=== PATIENT | male | born 1955 | race Caucasian/White ===

== ENCOUNTER → 2018-06-26 13:40 | Outpatient (BNVA) | payer MEDICARE, SELFPAY | PROVIDERS: Visit Provider Student in an Organized Health Care Education/Training Program | DX: I25.10 Atherosclerotic heart disease of native coronary artery without angina pectoris (principal); I12.9 Hypertensive chronic kidney disease with stage 1 through stage 4 chronic kidney disease, or unspecified chronic kidney disease; N18.3 Chronic kidney disease, stage 3 (moderate) | CPT/HCPCS: 99204; 99215 ==

== ENCOUNTER 2018-09-02 21:55 | Outpatient (REF) | payer MEDICARE, SELFPAY ==
[2018-09-02 22:29] LABS: ALT 32 U/L (12-78); AST 21 U/L (15-37); Albumin 3.6 g/dL (3.4-5.0); Alkaline Phosphatase 60 U/L (46-116); Anion Gap 6.4 mmol/L (3-11); BUN 25 mg/dL (7-18); Bilirubin, Total 0.3 mg/dL (0.2-1.0); CO2 27.6 mmol/L (21.0-32.0); CREATININE 1.55 mg/dL (0.70-1.30); Calcium 8.7 mg/dL (8.5-10.1); Chloride 103 mmol/L (98-107); Cholesterol 166 mg/dL (50-200); Estimated GFR 45.51 (mL/min/1.73m2); Glucose 75 mg/dL (70-100); HDL Cholesterol 45 mg/dL (40-60); LDL CHOLESTEROL 96 mg/dL (<100); Potassium 4.2 mmol/L (3.5-5.1); Sodium 137 mmol/L (136-145); Total Protein 9.5 g/dL (6.4-8.2); Triglyceride 134 mg/dL (30-150)
== END 2018-09-02 22:15 ==
LOC: NCHCN 21:55
PROVIDERS: PCP Family Medicine; Visit Provider Family Medicine
DX: E78.5 Hyperlipidemia, unspecified (principal)
CPT/HCPCS: 80053; 80061; 83721

== ENCOUNTER 2019-12-15 18:15 | Outpatient (REF) | payer MEDICARE, SELFPAY ==
[2019-12-15 21:48] LABS: ALT 30 U/L (16-63); AST 15 U/L (15-37); Albumin 3.5 g/dL (3.4-5.0); Alkaline Phosphatase 63 U/L (46-116); Anion Gap 8.6 mmol/L (3-11); BUN 21 mg/dL (7-18); Bilirubin, Total 0.4 mg/dL (0.2-1.0); CO2 24.4 mmol/L (21.0-32.0); CREATININE 1.56 mg/dL (0.70-1.30); Calcium 8.7 mg/dL (8.5-10.1); Chloride 105 mmol/L (98-107); Estimated GFR 45.03 (mL/min/1.73m2); Glucose 85 mg/dL (74-106); Potassium 4.5 mmol/L (3.5-5.1); Sodium 138 mmol/L (136-145); Total Protein 9.2 g/dL (6.4-8.2); Vitamin B12 359 pg/mL (193-986)
[2019-12-17 10:14] LABS: HIV-1/2 Ag & Ab Screen Negative (Negative)
[2019-12-17 11:03] LABS: Hepatitis C Ab w Rflx HCV PCR Negative (Negative)
== END 2019-12-15 18:35 ==
LOC: NCHCN 18:15
PROVIDERS: PCP Family Medicine; Visit Provider Nurse Practitioner Family
DX: I10 Essential (primary) hypertension (principal); N18.9 Chronic kidney disease, unspecified; D22.9 Melanocytic nevi, unspecified; R06.00 Dyspnea, unspecified; F17.210 Nicotine dependence, cigarettes, uncomplicated; I25.10 Atherosclerotic heart disease of native coronary artery without angina pectoris; K21.9 Gastro-esophageal reflux disease without esophagitis; Z11.4 Encounter for screening for human immunodeficiency virus [HIV]; Z11.59 Encounter for screening for other viral diseases
CPT/HCPCS: 80053; 86803; 87389; 82607; 83735

== ENCOUNTER 2020-06-14 19:30 | Outpatient (REF) | payer MEDICARE, SELFPAY ==
[2020-06-14 21:09] LABS: Anion Gap 3.7 mmol/L (3-11); BUN 16 mg/dL (7-18); CO2 27.3 mmol/L (21.0-32.0); CREATININE 1.42 mg/dL (0.70-1.30); Calcium 8.6 mg/dL (8.5-10.1); Chloride 105 mmol/L (98-107); Estimated GFR 50.04 (mL/min/1.73m2); Glucose 90 mg/dL (74-106); Potassium 4.5 mmol/L (3.5-5.1); Sodium 136 mmol/L (136-145)
== END 2020-06-14 19:50 ==
LOC: NCHCN 19:30
PROVIDERS: PCP Family Medicine; Visit Provider Nurse Practitioner Family
DX: R06.00 Dyspnea, unspecified (principal); I25.10 Atherosclerotic heart disease of native coronary artery without angina pectoris; F17.210 Nicotine dependence, cigarettes, uncomplicated; F32.9 Major depressive disorder, single episode, unspecified; K21.9 Gastro-esophageal reflux disease without esophagitis; N18.9 Chronic kidney disease, unspecified
CPT/HCPCS: 80048

== ENCOUNTER 2020-12-09 08:36 | Outpatient (REF) | payer MEDICARE, SELFPAY ==
[2020-12-09 14:33] LABS: ALT 29 U/L (16-63); AST 17 U/L (15-37); Albumin 3.2 g/dL (3.4-5.0); Alkaline Phosphatase 65 U/L (46-116); Anion Gap 8.5 mmol/L (3-11); BUN 16 mg/dL (7-18); Bilirubin, Total 0.4 mg/dL (0.2-1.0); CO2 25.5 mmol/L (21.0-32.0); CREATININE 1.6 mg/dL (0.70-1.30); Calcium 8.5 mg/dL (8.5-10.1); Chloride 106 mmol/L (98-107); Glucose 111 mg/dL (74-106); Magnesium 1.9 mg/dL (1.8-2.4); Potassium 4.3 mmol/L (3.5-5.1); Sodium 140 mmol/L (136-145); Total Protein 8.6 g/dL (6.4-8.2); Vitamin B12 336 pg/mL (193-986)
== END 2020-12-09 08:37 | disposition home or self-care (01) ==
LOC: NCHCN 08:36
PROVIDERS: PCP Family Medicine; Visit Provider Nurse Practitioner Family
DX: E78.5 Hyperlipidemia, unspecified (principal); I10 Essential (primary) hypertension; F17.210 Nicotine dependence, cigarettes, uncomplicated; R06.00 Dyspnea, unspecified; K21.9 Gastro-esophageal reflux disease without esophagitis; Z86.010 Personal history of colon polyps; F43.10 Post-traumatic stress disorder, unspecified; I25.10 Atherosclerotic heart disease of native coronary artery without angina pectoris
CPT/HCPCS: 80053; 82607; 83735

== ENCOUNTER 2021-02-08 02:27 | Outpatient (CLI) | payer MEDICARE, SELFPAY ==
--- NOTE | 2021-02-08 | DI.US_ITS ---
Exam(s) US AAA SCREENING EXAM: US AAA SCREENING CLINICAL HISTORY: SCREENING FOR AAA,Z13.6,CARDIOVASCULAR SCREENING TECHNIQUE: Ultrasound performed using standard protocol. COMPARISON: US ABDOMEN ULTRASOUND (P) from 07/27/2011 FINDINGS: Limited ultrasound was performed to evaluate for abdominal aortic aneurysm. The abdominal aorta is a t the upper limits of normal in diameter, at about 28 millimeters in the upper abdominal region, 26 m illimeters in the mid abdominal region, and 23 millimeters distally. Right and left common iliac artery show maximal diameter 15 millimeter and 16 millimeters respectivel y. IMPRESSION: No evidence of abdominal aortic aneurysm. No retroperitoneal fluid collection seen. DATA REPOSITORY:
== END 2021-02-08 02:47 ==
PROVIDERS: PCP Family Medicine; Visit Provider Nurse Practitioner Family
DX: Z13.6 Encounter for screening for cardiovascular disorders (principal)
CPT/HCPCS: 76706

== ENCOUNTER → 2021-04-04 00:42 | Outpatient (CLI) | payer MEDICARE, SELFPAY ==
--- NOTE | 2021-04-04 | DI.CTLCSR_ITS ---
Exam(s) CT CHEST LUNG CANCER SCREEN EXAM: CT CHEST LUNG CANCER SCREEN CLINICAL HISTORY: SCREENING FOR LUNG CA, CURRENT SMOKER, F17.210 TECHNIQUE: CT examination of the chest was performed utilizing low-dose lung cancer screening protoc ol. COMPARISON: No exams were available for comparison FINDINGS: Images obtained through the upper abdomen show unremarkable appearance of visualized portions of the liver and spleen. There is no mediastinal or hilar adenopathy. Mediastinal vascular structures appear intact by noncon trast criteria. Tracheobronchial tree appears intact. No pleural effusion or pleural-based mass. There are moderate central lobular and subpleural pulmonary emphysematous changes The lungs are clear with no significant intrapulmonary nodule identified. A 3 millimeter fissural no dule is noted on the right.. IMPRESSION: Lung RADS Cat 2 - Benign Appearance / Behavior: Nodules with a very low likelihood of becoming a clin ically active cancer due to size or lack of growth Continue annual screening with LDCT in 12 months. RADIATION DOSE DELIVERED: 84.81mGy.cm Total DLP 1.84mGy CTDIvol 84.81mGy.cm Total DLP 1.84mGy CTDIvol RADIATION OPTIMIZATION: All CT scans at this facility use at least one of these dose optimization te chniques: automated exposure control; mA and/or kV adjustment per patient size (includes targeted exa ms where dose is matched to clinical indication); or iterative reconstruction.
== END ==
PROVIDERS: PCP Family Medicine; Visit Provider Nurse Practitioner Family
DX: F17.210 Nicotine dependence, cigarettes, uncomplicated (principal); Z12.2 Encounter for screening for malignant neoplasm of respiratory organs; R91.1 Solitary pulmonary nodule
CPT/HCPCS: 71271

== ENCOUNTER 2021-06-15 14:08 | Outpatient (REF) | payer MEDICARE, SELFPAY ==
[2021-06-15 20:20] LABS: Anion Gap 4.9 mmol/L (3-11); BUN 21 mg/dL (7-18); CO2 28.1 mmol/L (21.0-32.0); CREATININE 1.5 mg/dL (0.70-1.30); Calcium 8.7 mg/dL (8.5-10.1); Chloride 106 mmol/L (98-107); Estimated GFR 46.82 (mL/min/1.73m2); Glucose 111 mg/dL (74-106); Potassium 4.8 mmol/L (3.5-5.1); Sodium 139 mmol/L (136-145)
== END 2021-06-15 14:09 | disposition home or self-care (01) ==
LOC: NCHCN 14:08
PROVIDERS: PCP Family Medicine; Visit Provider Nurse Practitioner Family
DX: I10 Essential (primary) hypertension (principal)
CPT/HCPCS: 80048

== ENCOUNTER 2021-12-15 16:10 | Outpatient (REF) | payer MEDICARE, SELFPAY ==
[2021-12-15 16:39] LABS: ALT 26 U/L (16-63); AST 17 U/L (15-37); Albumin 3.2 g/dL (3.4-5.0); Alkaline Phosphatase 67 U/L (46-116); Anion Gap 7.7 mmol/L (3-11); BUN 16 mg/dL (7-18); Bilirubin, Total 0.3 mg/dL (0.2-1.0); CO2 25.3 mmol/L (21.0-32.0); CREATININE 1.4 mg/dL (0.70-1.30); Calcium 8.4 mg/dL (8.5-10.1); Chloride 104 mmol/L (98-107); Glucose 90 mg/dL (74-106); Magnesium 1.8 mg/dL (1.8-2.4); Potassium 4.5 mmol/L (3.5-5.1); Sodium 137 mmol/L (136-145); Total Protein 8.9 g/dL (6.4-8.2); Vitamin B12 301 pg/mL (193-986)
[2021-12-15 19:03] LABS: NT-proBNP 128 pg/mL (<300)
== END 2021-12-15 16:11 | disposition home or self-care (01) ==
LOC: NCHCN 16:10
PROVIDERS: PCP Family Medicine; Visit Provider Nurse Practitioner Family
DX: I10 Essential (primary) hypertension (principal); R06.09 Other forms of dyspnea; R60.0 Localized edema; J43.8 Other emphysema; F32.9 Major depressive disorder, single episode, unspecified; K21.9 Gastro-esophageal reflux disease without esophagitis; I25.10 Atherosclerotic heart disease of native coronary artery without angina pectoris; Z79.899 Other long term (current) drug therapy
CPT/HCPCS: 80053; 82607; 83735; 83880

== ENCOUNTER → 2022-01-11 00:43 | Outpatient (CLI) | payer MEDICARE, SELFPAY ==
--- NOTE | 2022-01-11 | DI.US_ITS ---
Exam(s) US AAA SCREENING EXAM: US AAA SCREENING CLINICAL HISTORY: SCREENING FOR ABDOMINAL AORTIC ANEURYSM, I74.4 COMPARISON: CT CT CHEST LUNG CANCER SCREEN from 04/04/2021 FINDINGS: Abdominal Aorta: Proximal: 2.9 cm Mid: 2.5 cm Distal: 2.2 cm Iliacs: Right: 1.3 cm Left: 1.2 cm IMPRESSION: No evidence of abdominal aortic aneurysm. DATA REPOSITORY:
== END ==
PROVIDERS: PCP Family Medicine; Visit Provider Nurse Practitioner Family
DX: Z13.6 Encounter for screening for cardiovascular disorders (principal); I74.4 Embolism and thrombosis of arteries of extremities, unspecified
CPT/HCPCS: 76706

== ENCOUNTER 2022-07-31 12:16 | Outpatient (REF) | payer MEDICARE, SELFPAY ==
[2022-07-31 15:08] LABS: Abs Immature Grans 0.01 10^3/uL (0.0-0.06); Absolute Basophil Count 0.07 10^3/uL (0.0-0.2); Absolute Eosinophil Count 0.31 10^3/uL (0.0-0.7); Absolute Lymphocyte Count 2.94 10^3/uL (1.2-3.4); Absolute Neutrophil Count 3.36 10^3/uL (1.2-6.7); Eosinophils % 4.3; HCT 44.3 % (40.0-50.0); HGB 14.9 g/dL (13.5-17.5); Immature Grans % 0.1; Lymphocytes % 40.3; MCH 32.5 pg (27.0-33.0); MCHC 33.6 % (32.0-36.0); MCV 97 fL (80-95); MPV 10.6 fL (8.0-11.0); Monocytes % 8.2; Neutrophils % 46.1; Platelet Count 318 10^3/uL (130-400); RBC 4.58 10^6/uL (4.36-5.78); RDW-SD 46.4 fL; Reticulocyte 1.1 % (0.5-2.4); WBC 7.29 10^3/uL (4.4-10.8)
[2022-07-31 15:28] LABS: ALT 24 U/L (16-63); AST 15 U/L (15-37); Albumin 3.6 g/dL (3.4-5.0); Alkaline Phosphatase 62 U/L (46-116); Anion Gap 6.9 mmol/L (3-11); BUN 19 mg/dL (7-18); Bilirubin, Total 0.4 mg/dL (0.2-1.0); CO2 26.1 mmol/L (21.0-32.0); CREATININE 1.5 mg/dL (0.70-1.30); Calcium 8.9 mg/dL (8.5-10.1); Chloride 105 mmol/L (98-107); Estimated GFR 50.71 (mL/min/1.73m2); Folate 5.6 ng/mL (8.6-20.0); Glucose 102 mg/dL (74-106); Potassium 4.3 mmol/L (3.5-5.1); Sodium 138 mmol/L (136-145); Total Protein 9.2 g/dL (6.4-8.2)
[2022-08-01 09:54] LABS: Haptoglobin 173 mg/dL (32-197)
[2022-08-01 15:17] LABS: Albumin 45.2 % (55.8-66.1); Comment (See Note); Monoclonal Spike 29.7 % (None Seen); Monoclonal Spike g/dL 2.6 g/dL (None Seen); Total Protein 8.9 g/dL (6.3-8.2)
[2022-08-01 15:38] LABS: Immunotyping, Serum (See Note)
== END 2022-07-31 12:17 | disposition home or self-care (01) ==
LOC: NCHCN 12:16
PROVIDERS: PCP Family Medicine; Visit Provider Nurse Practitioner Family
DX: R77.0 Abnormality of albumin (principal); I25.10 Atherosclerotic heart disease of native coronary artery without angina pectoris; R60.0 Localized edema; I10 Essential (primary) hypertension; K21.00 Gastro-esophageal reflux disease with esophagitis, without bleeding; I71.40 Abdominal aortic aneurysm, without rupture, unspecified; J43.9 Emphysema, unspecified
CPT/HCPCS: 80053; 82746; 83010; 84165; 85025; 85045; 86320

== ENCOUNTER 2022-08-04 11:25 | Outpatient (REF) | payer MEDICARE, SELFPAY ==
[2022-08-07 15:52] LABS: Albumin, Urine % 20.6 %; Albumin, Urine mg/dL 4 mg/dL; Globulins, Urine % 79.4 %; Globulins, Urine mg/dL 14 mg/dL; Immunotyping, Urine (See Note); Total Protein Urine 18 mg/dL (See Note)
== END 2022-08-04 11:26 | disposition home or self-care (01) ==
LOC: NCHCN 11:25
PROVIDERS: PCP Family Medicine; Visit Provider Nurse Practitioner Family
DX: D47.2 Monoclonal gammopathy (principal)
CPT/HCPCS: 84156; 84166; 86335

== ENCOUNTER 2023-02-08 05:29 | Outpatient (CLI) | payer MEDICARE, SELFPAY ==
[2023-02-08 08:34] LABS: Abs Immature Grans 0.02 10^3/uL (0.0-0.06); Absolute Basophil Count 0.06 10^3/uL (0.0-0.2); Absolute Eosinophil Count 0.35 10^3/uL (0.0-0.7); Absolute Lymphocyte Count 3.01 10^3/uL (1.2-3.4); Absolute Monocyte Count 0.66 10^3/uL (0.1-0.8); Absolute Neutrophil Count 4.39 10^3/uL (1.2-6.7); Basophils % 0.7; Eosinophils % 4.1; HCT 41.1 % (40.0-50.0); HGB 13.7 g/dL (13.5-17.5); Immature Grans % 0.2; Lymphocytes % 35.5; MCH 32.3 pg (27.0-33.0); MCHC 33.3 % (32.0-36.0); MCV 97 fL (80-95); MPV 9.5 fL (8.0-11.0); Monocytes % 7.8; Neutrophils % 51.7; Platelet Count 276 10^3/uL (130-400); RBC 4.24 10^6/uL (4.36-5.78); RDW 13.3 % (11.8-14.1); RDW-SD 47.5 fL; WBC 8.49 10^3/uL (4.4-10.8)
[2023-02-08 09:02] LABS: ALT 24 U/L (16-63); AST 15 U/L (15-37); Albumin 3.1 g/dL (3.4-5.0); Alkaline Phosphatase 64 U/L (46-116); Anion Gap 7.6 mmol/L (3-11); BUN 20 mg/dL (7-18); Bilirubin, Total 0.4 mg/dL (0.2-1.0); CO2 26.4 mmol/L (21.0-32.0); CREATININE 1.6 mg/dL (0.70-1.30); Calcium 8.6 mg/dL (8.5-10.1); Chloride 105 mmol/L (98-107); Estimated GFR 46.64 (mL/min/1.73m2); Glucose 134 mg/dL (74-106); Potassium 4.2 mmol/L (3.5-5.1); Sodium 139 mmol/L (136-145); Total Protein 8.9 g/dL (6.4-8.2)
[2023-02-09 08:40] LABS: IgA 87 mg/dL (85-499); IgG 3331 mg/dL (610-1616); IgM 106 mg/dL (35-242); Kappa Free Light Chain 15.72 mg/dL (0.33-1.94)
[2023-02-09 12:17] LABS: Albumin 44.6 % (55.8-66.1); Albumin g/dL 3.7 g/dL (3.6-5.2); Comment (See Note); Monoclonal Spike 30.5 % (None Seen); Monoclonal Spike g/dL 2.5 g/dL (None Seen); Total Protein 8.3 g/dL (6.3-8.2)
== END 2023-02-08 05:30 | disposition home or self-care (01) ==
LOC: LBO 05:29
PROVIDERS: PCP Family Medicine; Visit Provider Internal Medicine Hematology & Oncology
DX: D47.2 Monoclonal gammopathy (principal)
CPT/HCPCS: 36415; 80053; 82784; 83883; 84165; 85025

== ENCOUNTER 2023-02-20 18:52 | Outpatient (REF) | payer MEDICARE, SELFPAY ==
[2023-02-20 16:19] LABS: Hemoglobin A1C 6.1 % (<5.7)
[2023-02-20 16:24] LABS: Magnesium 1.7 mg/dL (1.8-2.4); TSH (W/Ref FT4) 0.97 uIU/mL (0.36-3.74); Vitamin B12 821 pg/mL (193-986)
[2023-02-20 16:26] LABS: Folate > 20.0 ng/mL (8.6-20.0)
[2023-02-20 22:55] LABS: PSA, Screening 5.5 ng/mL (<=4.5)
== END 2023-02-20 18:53 | disposition home or self-care (01) ==
LOC: NCHCN 18:52
PROVIDERS: PCP Family Medicine; Visit Provider Nurse Practitioner Family
DX: I10 Essential (primary) hypertension (principal); I25.10 Atherosclerotic heart disease of native coronary artery without angina pectoris; D52.0 Dietary folate deficiency anemia; D35.00 Benign neoplasm of unspecified adrenal gland; R39.89 Other symptoms and signs involving the genitourinary system; F32.9 Major depressive disorder, single episode, unspecified; C90.00 Multiple myeloma not having achieved remission; K21.9 Gastro-esophageal reflux disease without esophagitis; E66.9 Obesity, unspecified; R73.09 Other abnormal glucose; Z12.5 Encounter for screening for malignant neoplasm of prostate
CPT/HCPCS: 84153; 82607; 82746; 83036; 83735; 84443

== ENCOUNTER 2023-08-09 04:21 | Outpatient (CLI) | payer MEDICARE, SELFPAY ==
[2023-08-09 10:23] LABS: Abs Immature Grans 0.01 10^3/uL (0.0-0.06); Absolute Basophil Count 0.06 10^3/uL (0.0-0.2); Absolute Eosinophil Count 0.23 10^3/uL (0.0-0.7); Absolute Lymphocyte Count 2.95 10^3/uL (1.2-3.4); Absolute Monocyte Count 0.41 10^3/uL (0.1-0.8); Absolute Neutrophil Count 3.03 10^3/uL (1.2-6.7); Basophils % 0.9; Eosinophils % 3.4; HGB 14.1 g/dL (13.5-17.5); Immature Grans % 0.1; Lymphocytes % 44.1; MCH 31.5 pg (27.0-33.0); MCHC 32.8 % (32.0-36.0); MCV 96 fL (80-95); MPV 10.1 fL (8.0-11.0); Monocytes % 6.1; Neutrophils % 45.4; Platelet Count 302 10^3/uL (130-400); RBC 4.47 10^6/uL (4.36-5.78); RDW 13.8 % (11.8-14.1); RDW-SD 48.8 fL; WBC 6.69 10^3/uL (4.4-10.8)
[2023-08-09 10:55] LABS: ALT 21 U/L (16-63); AST 12 U/L (15-37); Albumin 3.2 g/dL (3.4-5.0); Alkaline Phosphatase 65 U/L (46-116); Anion Gap 7.2 mmol/L (3-11); BUN 16 mg/dL (7-18); Bilirubin, Total 0.5 mg/dL (0.2-1.0); CO2 27.8 mmol/L (21.0-32.0); CREATININE 1.4 mg/dL (0.70-1.30); Calcium 8.9 mg/dL (8.5-10.1); Chloride 105 mmol/L (98-107); Estimated GFR 54.75 (mL/min/1.73m2); Glucose 108 mg/dL (74-106); Potassium 4.5 mmol/L (3.5-5.1); Sodium 140 mmol/L (136-145); Total Protein 9.3 g/dL (6.4-8.2)
[2023-08-10 10:58] LABS: IgA 81 mg/dL (85-499); IgG 3233 mg/dL (610-1616); IgM 100 mg/dL (35-242); Lambda Free Light Chain 1.45 mg/dL (0.57-2.63)
[2023-08-10 12:26] LABS: Albumin 43.7 % (55.8-66.1); Albumin g/dL 3.8 g/dL (3.6-5.2); Comment (See Note); Monoclonal Spike 31.5 % (None Seen); Monoclonal Spike g/dL 2.7 g/dL (None Seen); Total Protein 8.6 g/dL (6.3-8.2)
== END 2023-08-09 04:22 | disposition home or self-care (01) ==
LOC: LBO 04:21
PROVIDERS: PCP Family Medicine; Visit Provider Internal Medicine Hematology & Oncology
DX: D47.2 Monoclonal gammopathy (principal)
CPT/HCPCS: 36415; 80053; 82784; 83883; 84165; 85025

== ENCOUNTER 2023-08-28 13:22 | Outpatient (REF) | payer MEDICARE, SELFPAY ==
[2023-08-28 14:42] LABS: Hemoglobin A1C 5.9 % (<5.7)
[2023-08-28 15:02] LABS: ALT 25 U/L (16-63); AST 12 U/L (15-37); Albumin 3.3 g/dL (3.4-5.0); Alkaline Phosphatase 68 U/L (46-116); Anion Gap 6.9 mmol/L (3-11); BUN 14 mg/dL (7-18); Bilirubin, Total 0.4 mg/dL (0.2-1.0); CO2 27.1 mmol/L (21.0-32.0); CREATININE 1.3 mg/dL (0.70-1.30); Calcium 8.9 mg/dL (8.5-10.1); Chloride 104 mmol/L (98-107); Estimated GFR 59.84 (mL/min/1.73m2); Glucose 112 mg/dL (74-106); Magnesium 1.8 mg/dL (1.8-2.4); Potassium 4.8 mmol/L (3.5-5.1); Sodium 138 mmol/L (136-145); Total Protein 8.8 g/dL (6.4-8.2); Vitamin B12 647 pg/mL (193-986)
[2023-08-28 22:45] LABS: PSA, Diagnostic 5.1 ng/mL (<=4.5)
== END 2023-08-28 13:23 | disposition home or self-care (01) ==
LOC: NCHCN 13:22
PROVIDERS: PCP Family Medicine; Referring Provider Nurse Practitioner Family; Visit Provider Nurse Practitioner Family
DX: R73.03 Prediabetes (principal); I25.10 Atherosclerotic heart disease of native coronary artery without angina pectoris
CPT/HCPCS: 80053; 82607; 83036; 83735; 84153

== ENCOUNTER → 2024-01-25 00:09 | Outpatient (CLI) | payer MEDICARE, SELFPAY ==
--- NOTE | 2024-01-25 | DI.US_ITS ---
Exam(s) US AAA DIAGNOSTIC EXAM: US AAA DIAGNOSTIC CLINICAL HISTORY: ABDOMINAL AORTIC ANEURYSM W/O RUPTURE, I71.40 COMPARISON: CT CT CHEST LUNG CANCER SCREEN from 01/25/2024 FINDINGS: Abdominal Aorta: Proximal: 3 cm Mid: 2.2 by 2.5 cm Distal: 2.0 x 2.5 cm Iliacs: Right: 1.1 x 1.5 cm Left: 1.4 x 1.5 cm IMPRESSION: Stable mild dilatation of proximal abdominal aorta. DATA REPOSITORY:
--- NOTE | 2024-01-25 | DI.CTLCSR_ITS ---
Exam(s) CT CHEST LUNG CANCER SCREEN EXAM: CT CHEST LUNG CANCER SCREEN CLINICAL HISTORY: SCREENING FOR LUNG CANCER, F17.210, TOBACCO DEPENDENCE TECHNIQUE: Imaging Protocol: Axial computed tomography images with coronal and sagittal reformatted images were created and reviewed. Low dose screening protocol. COMPARISON: CT CT CHEST LUNG CANCER SCREEN from 04/04/2021 FINDINGS: Tracheobronchial tree: No bronchiectasis or mucus plugging. Mediastinum and Kassidy: No dominant adenopathy or fluid collection. Pulmonary parenchyma: No consolidation or dominant measurable mass. Mild emphysematous changes, grea ter at the upper lobes. Mild bilateral upper lobe scarring. Areas of atelectasis right lower lobe.. Lung Nodules: None. Pleura: No effusion. No pneumothorax. Heart: The heart is not dilated. Minimal coronary artery calcifications are seen. Aorta: Thoracic aorta non-dilated. Upper abdomen: Unremarkable. Bones: Unremarkable for age. Soft Tissues: Unremarkable. IMPRESSION: No suspicious pulmonary nodules. Lung RADS Cat 1 - Negative: No nodules and definitely benign nodules Lung-RADS 1.0 CATEGORIES: Category 0 - Prior chest CT exam(s) being located for comparison. Category 1 - Annual screening in 12 months. No nodules or definitely benign nodules. Category 2 - Annual screening in 12 months. Benign appearance. Nodules with low likelihood of becomin g active cancer. Category 3 - 6-month follow-up. Probably benign. Short-term follow-up suggested. Nodules with low lik elihood of becoming active cancer. Category 4A - 3-month follow-up and CT/PET if >8 mm in size. Suspicious finding. Findings which requi re additional testing. Category 4B - Findings which require additional testing and tissue sampling. Category 4X - Category 3 or 4 nodules with additional features or imaging findings that increases the suspicion of malignancy. Modifier S- Potentially clinically significant findings (non lung cancer) RADIATION DOSE DELIVERED: Total DLP DATA REPOSITORY: All CT scans at this facility are submitted to the National Radiology Data Registry (NRDR) Dose Index Registry (DIR) with the [employer] (ACR). RADIATION OPTIMIZATION: All CT scans at this facility use at least one of these dose optimization te chniques: automated exposure control; mA and/or kV adjustment per patient size (includes targeted exa ms where dose is matched to clinical indication); or iterative reconstruction.
== END ==
PROVIDERS: PCP Family Medicine; Visit Provider Nurse Practitioner Family
DX: F17.210 Nicotine dependence, cigarettes, uncomplicated (principal); I71.40 Abdominal aortic aneurysm, without rupture, unspecified
CPT/HCPCS: 71271; 76775

== ENCOUNTER 2024-02-07 04:07 | Outpatient (CLI) | payer MEDICARE, SELFPAY ==
[2024-02-07 09:18] LABS: Abs Immature Grans 0.01 10^3/uL (0.0-0.06); Absolute Basophil Count 0.06 10^3/uL (0.0-0.2); Absolute Eosinophil Count 0.24 10^3/uL (0.0-0.7); Absolute Lymphocyte Count 2.34 10^3/uL (1.2-3.4); Absolute Monocyte Count 0.47 10^3/uL (0.1-0.8); Absolute Neutrophil Count 3.46 10^3/uL (1.2-6.7); Basophils % 0.9 %; Eosinophils % 3.6 %; HGB 14.3 g/dL (13.5-17.5); Immature Grans % 0.2 %; Lymphocytes % 35.6 %; MCH 32.9 pg (27.0-33.0); MCHC 33.3 % (32.0-36.0); MCV 99 fL (80-95); MPV 9.9 fL (8.0-11.0); Monocytes % 7.1 %; Neutrophils % 52.6 %; Platelet Count 286 10^3/uL (130-400); RBC 4.35 10^6/uL (4.36-5.78); RDW 13.2 % (11.8-14.1); RDW-SD 47.8 fL; WBC 6.58 10^3/uL (4.4-10.8)
[2024-02-07 09:49] LABS: ALT 25 U/L (16-63); AST 13 U/L (15-37); Albumin 3.2 g/dL (3.4-5.0); Alkaline Phosphatase 65 U/L (46-116); Anion Gap 6.4 mmol/L (3-11); BUN 22 mg/dL (7-18); CO2 27.6 mmol/L (21.0-32.0); CREATININE 1.5 mg/dL (0.70-1.30); Calcium 8.7 mg/dL (8.5-10.1); Chloride 104 mmol/L (98-107); Estimated GFR 50.08 (mL/min/1.73m2); Glucose 114 mg/dL (74-106); Potassium 4.3 mmol/L (3.5-5.1); Sodium 138 mmol/L (136-145); Total Protein 9.3 g/dL (6.4-8.2)
[2024-02-08 09:25] LABS: IgA 85 mg/dL (85-499); IgG 3624 mg/dL (610-1616); IgM 108 mg/dL (35-242); Kappa Free Light Chain 19.93 mg/dL (0.33-1.94); Lambda Free Light Chain 1.45 mg/dL (0.57-2.63)
[2024-02-08 15:59] LABS: Albumin 43.6 % (55.8-66.1); Albumin g/dL 3.7 g/dL (3.6-5.2); Comment (See Note); Monoclonal Spike 32.2 % (None Seen); Monoclonal Spike g/dL 2.8 g/dL (None Seen); Total Protein 8.6 g/dL (6.3-8.2)
== END 2024-02-07 04:08 | disposition home or self-care (01) ==
LOC: LBO 04:07
PROVIDERS: PCP Family Medicine; Visit Provider Internal Medicine Hematology & Oncology
DX: E66.9 Obesity, unspecified (principal)
CPT/HCPCS: 36415; 80053; 82784; 83036; 83883; 84153; 84165; 85025

== ENCOUNTER 2024-03-07 16:17 | Outpatient (REF) | payer MEDICARE, SELFPAY ==
[2024-03-07 17:02] LABS: Calculated LDL 108 mg/dL (<100); Cholesterol 175 mg/dL (<200); HDL Cholesterol 48 mg/dL (40-60); Triglyceride 97 mg/dL (<150)
[2024-03-07 17:07] LABS: Folate > 20.0 ng/mL (8.6-20.0)
[2024-03-07 22:45] LABS: PSA, Diagnostic 7.1 ng/mL (<=4.5)
== END 2024-03-07 16:18 | disposition home or self-care (01) ==
LOC: NCHCN 16:17
PROVIDERS: PCP Family Medicine; Visit Provider Nurse Practitioner Family
DX: I25.10 Atherosclerotic heart disease of native coronary artery without angina pectoris (principal); R73.03 Prediabetes; I10 Essential (primary) hypertension; E78.2 Mixed hyperlipidemia; N18.32 Chronic kidney disease, stage 3b; D52.0 Dietary folate deficiency anemia; R97.20 Elevated prostate specific antigen [PSA]; E66.9 Obesity, unspecified
CPT/HCPCS: 80061; 82746; 83036; 84153

== ENCOUNTER → 2024-04-29 07:50 | Outpatient (BNVA) | payer MEDICARE, SELFPAY | PROVIDERS: PCP Family Medicine; Referring Provider Family Medicine; Visit Provider Nurse Practitioner Gerontology ==

== ENCOUNTER 2024-04-29 11:08 | Outpatient (CLI) | payer MEDICARE, SELFPAY ==
[2024-04-29 09:55] LABS: CREATININE 1.4 mg/dL (0.70-1.30); Estimated GFR 54.41 (mL/min/1.73m2)
== END 2024-04-29 11:09 | disposition home or self-care (01) ==
LOC: LBO 11:21
PROVIDERS: PCP Family Medicine; Visit Provider Nurse Practitioner Gerontology
DX: R97.20 Elevated prostate specific antigen [PSA] (principal); R39.9 Unspecified symptoms and signs involving the genitourinary system
CPT/HCPCS: 36415; 51798; 81003; 99205; 82565

== ENCOUNTER 2024-06-06 10:31 | Outpatient (REF) | payer MEDICARE, SELFPAY ==
[2024-06-06 15:02] LABS: ALT 30 U/L (16-63); AST 15 U/L (15-37); Albumin 3.4 g/dL (3.4-5.0); Alkaline Phosphatase 66 U/L (46-116); Anion Gap 6.4 mmol/L (3-11); BUN 23 mg/dL (7-18); Bilirubin, Total 0.47 mg/dL (0.2-1.0); CO2 26.6 mmol/L (21.0-32.0); CREATININE 1.5 mg/dL (0.70-1.30); Calcium 8.8 mg/dL (8.5-10.1); Calculated LDL 96 mg/dL (<100); Chloride 106 mmol/L (98-107); Cholesterol 162 mg/dL (<200); Estimated GFR 50.08 (mL/min/1.73m2); Glucose 99 mg/dL (74-106); HDL Cholesterol 48 mg/dL (40-60); Potassium 4.8 mmol/L (3.5-5.1); Sodium 139 mmol/L (136-145); Total Protein 9.2 g/dL (6.4-8.2); Triglyceride 94 mg/dL (<150)
[2024-06-06 22:48] LABS: PSA, Screening 6.4 ng/mL (<=4.5)
== END 2024-06-06 10:32 | disposition home or self-care (01) ==
LOC: NCHCN 10:31
PROVIDERS: PCP Family Medicine; Visit Provider Nurse Practitioner Family
DX: I25.10 Atherosclerotic heart disease of native coronary artery without angina pectoris (principal); R97.20 Elevated prostate specific antigen [PSA]; E78.2 Mixed hyperlipidemia; N18.32 Chronic kidney disease, stage 3b; I10 Essential (primary) hypertension
CPT/HCPCS: 80053; 80061; 84153

== ENCOUNTER → 2024-06-23 14:56 | Outpatient (BNVA) | payer MEDICARE, SELFPAY | PROVIDERS: PCP Family Medicine; Referring Provider Family Medicine; Visit Provider Nurse Practitioner Gerontology | DX: R97.20 Elevated prostate specific antigen [PSA] (principal) | CPT/HCPCS: 99213 ==

== ENCOUNTER 2024-08-06 04:13 | Outpatient (CLI) | payer MEDICARE, SELFPAY ==
[2024-08-06 11:48] LABS: Abs Immature Grans 0.03 10^3/uL (0.0-0.06); Absolute Basophil Count 0.06 10^3/uL (0.0-0.2); Absolute Eosinophil Count 0.16 10^3/uL (0.0-0.7); Absolute Lymphocyte Count 2.26 10^3/uL (1.2-3.4); Absolute Monocyte Count 0.47 10^3/uL (0.1-0.8); Absolute Neutrophil Count 3.31 10^3/uL (1.2-6.7); Eosinophils % 2.5 %; HCT 42.3 % (40.0-50.0); HGB 14.1 g/dL (13.5-17.5); Immature Grans % 0.5 %; Lymphocytes % 35.9 %; MCH 33.1 pg (27.0-33.0); MCHC 33.3 % (32.0-36.0); MCV 99 fL (80-95); MPV 9.9 fL (8.0-11.0); Monocytes % 7.5 %; Neutrophils % 52.6 %; Platelet Count 228 10^3/uL (130-400); RBC 4.26 10^6/uL (4.36-5.78); RDW 13.1 % (11.8-14.1); RDW-SD 47.8 fL; WBC 6.29 10^3/uL (4.4-10.8)
[2024-08-06 12:03] LABS: ALT 32 U/L (16-63); AST 19 U/L (15-37); Alkaline Phosphatase 65 U/L (46-116); Anion Gap 3.8 mmol/L (3-11); BUN 16 mg/dL (7-18); Bilirubin, Total 0.43 mg/dL (0.2-1.0); CO2 28.2 mmol/L (21.0-32.0); CREATININE 1.6 mg/dL (0.70-1.30); Calcium 8.6 mg/dL (8.5-10.1); Chloride 106 mmol/L (98-107); Estimated GFR 46.35 (mL/min/1.73m2); Glucose 125 mg/dL (74-106); Sodium 138 mmol/L (136-145)
[2024-08-06 17:48] LABS: PSA, Diagnostic 6.1 ng/mL (<=4.5)
[2024-08-07 09:43] LABS: IgA 82 mg/dL (85-499); IgG 3631 mg/dL (610-1616); IgM 111 mg/dL (35-242); Kappa Free Light Chain 15.41 mg/dL (0.33-1.94); Lambda Free Light Chain 1.37 mg/dL (0.57-2.63)
[2024-08-07 12:53] LABS: Albumin 44.5 % (55.8-66.1); Albumin g/dL 3.9 g/dL (3.6-5.2); Comment (See Note); Monoclonal Spike 29.8 % (None Seen); Monoclonal Spike g/dL 2.6 g/dL (None Seen); Total Protein 8.7 g/dL (6.3-8.2)
== END 2024-08-06 04:14 | disposition home or self-care (01) ==
LOC: LBO 04:14
PROVIDERS: Nurse Practitioner Gerontology; PCP Family Medicine; Visit Provider Internal Medicine Hematology & Oncology
DX: R97.20 Elevated prostate specific antigen [PSA] (principal); D47.2 Monoclonal gammopathy
CPT/HCPCS: 36415; 80053; 82784; 83883; 84153; 84165; 85025

== ENCOUNTER → 2024-08-07 13:41 | Outpatient (BNVA) | payer MEDICARE, SELFPAY | PROVIDERS: PCP Family Medicine; Referring Provider Family Medicine; Visit Provider Nurse Practitioner Gerontology | DX: N42.89 Other specified disorders of prostate (principal); R97.20 Elevated prostate specific antigen [PSA] | CPT/HCPCS: 99213 ==

== ENCOUNTER 2024-09-05 16:11 | Outpatient (REF) | payer MEDICARE, SELFPAY ==
[2024-09-05 15:18] LABS: Abs Immature Grans 0.02 10^3/uL (0.0-0.06); Absolute Basophil Count 0.08 10^3/uL (0.0-0.2); Absolute Eosinophil Count 0.16 10^3/uL (0.0-0.7); Absolute Lymphocyte Count 2.52 10^3/uL (1.2-3.4); Absolute Monocyte Count 0.58 10^3/uL (0.1-0.8); Absolute Neutrophil Count 3.51 10^3/uL (1.2-6.7); Basophils % 1.2 %; Eosinophils % 2.3 %; HCT 40.9 % (40.0-50.0); HGB 14.2 g/dL (13.5-17.5); Immature Grans % 0.3 %; Lymphocytes % 36.7 %; MCHC 34.7 % (32.0-36.0); MCV 95 fL (80-95); MPV 10.7 fL (8.0-11.0); Monocytes % 8.4 %; Neutrophils % 51.1 %; Platelet Count 291 10^3/uL (130-400); RDW-SD 45.1 fL; WBC 6.87 10^3/uL (4.4-10.8)
[2024-09-05 15:54] LABS: ALT 25 U/L (16-63); AST 15 U/L (15-37); Albumin 3.3 g/dL (3.4-5.0); Alkaline Phosphatase 67 U/L (46-116); Anion Gap 6.9 mmol/L (3-11); BUN 18 mg/dL (7-18); Bilirubin, Total 0.4 mg/dL (0.2-1.0); CO2 25.1 mmol/L (21.0-32.0); CREATININE 1.4 mg/dL (0.70-1.30); Chloride 107 mmol/L (98-107); Estimated GFR 54.41 (mL/min/1.73m2); Glucose 85 mg/dL (74-106); Magnesium 1.9 mg/dL; Potassium 4.6 mmol/L (3.5-5.1); Sodium 139 mmol/L (136-145); Total Protein 9.3 g/dL (6.4-8.2); Vitamin B12 820 pg/mL (193-986)
== END 2024-09-05 16:12 | disposition home or self-care (01) ==
LOC: NCHCN 16:11
PROVIDERS: PCP Family Medicine; Visit Provider Nurse Practitioner Family
DX: I25.10 Atherosclerotic heart disease of native coronary artery without angina pectoris (principal); K21.9 Gastro-esophageal reflux disease without esophagitis
CPT/HCPCS: 80053; 82607; 83735; 85025

== ENCOUNTER 2024-09-09 10:31 | Outpatient (CLI) | payer MEDICARE, SELFPAY ==
--- NOTE | 2024-09-09 10:30 | RT.EKG_ITS ---
APPROVED REPORT Exam: Resting ECG Reason for Exam: cad Patient Location: O HR:69 bpm ECG Measurements Heart Rate 69 AXIS SD 161 P 61 QRSd 91 QRS -34 QT 386 T 27 QTc 414 Conclusion Sinus rhythm...normal P axis, V-rate 50- 99 Atrial premature complexes...SV complexes w/ short R-R intvls LAFB
== END 2024-09-09 10:32 | disposition home or self-care (01) ==
LOC: DI.CARD 10:31
PROVIDERS: PCP Family Medicine; Visit Provider Internal Medicine Cardiovascular Disease
DX: I25.10 Atherosclerotic heart disease of native coronary artery without angina pectoris (principal)
CPT/HCPCS: 93010

== ENCOUNTER → 2024-09-09 13:48 | Outpatient (BNVA) | payer MEDICARE, SELFPAY | PROVIDERS: PCP Family Medicine; Referring Provider Family Medicine; Visit Provider Internal Medicine Cardiovascular Disease | DX: I25.119 Atherosclerotic heart disease of native coronary artery with unspecified angina pectoris (principal); I10 Essential (primary) hypertension; E78.5 Hyperlipidemia, unspecified | CPT/HCPCS: 99214 ==

== ENCOUNTER 2024-10-02 00:51 | Outpatient (CLI) | payer MEDICARE, SELFPAY ==
--- NOTE | 2024-10-02 07:15 | DI.NM_ITS ---
APPROVED REPORT Exam: Pharmacologic Patient Location: Out-Patient Room/Bed: Stress Nurse: Ashley Wall RN Ordering Provider:CHRISTIAN ANDERSON, Contact Number: BMI: 31.65 Baseline Rhythm: Sinus Rhythm Comment: Frequent PAC's Indications: Exertional chest pain, CAD, atherosclerosis, HTN, HLD, Medical History Medical History: Obesity, CKD, HTN, HLD, CAD, prediabetes, AAA, smoker, PTSD, nicotine depenance, candy or depression, hypomagnesemia, mulitple myeloma Cardiac Medications: Albuterol sulfate, amlodipine, aspirin, atorvastatin, lisinopril, metoprolol suc cinate, omeprazole, prazosin, spiriva Allergies: Penicillins, cephalexin monohydrate, vaccine adjuvant system [id number] liposomal (from [employer] (PF)), COVID 19 (SARS CoV-2) vaccine guera, varicella-zoster virus glyco protein E, recombinant, hyd rochlorothiazide Cardiac Risk Factors: HTN, HLD, CVD, prediabetes, asthma, former smoker, obesity Previous Cardiac Procedures: Cardiac cath, cardiac stents x2 Pretest Chest Pain Characteristics: Mild chest heaviness Exercise History: Sedentary Physical Disabilities: None Lung Sounds: Diminished throughout Heart Sounds: Irregular Stress Test Details Test: Pharmacologic stress was paired with low level exercise. Reason for pharmacologic stress test: Best nancie. Nuclear Acquisition: Rest Tc-99m/Stress Tc-99m 1 day Rest Isotope: Tc-99m Sestamibi. Dose: 10.0 Date: 10/02/2024 Injection Time: 0845 Stress Isotope: Tc-99m Sestamibi. Dose: 30.0 Date: 10/02/2024 Injection Time: 1026 HR Resting HR Supine: 72 bpm Max Heart Rate (APMHR): 151 bpm Resting HR Standin bpm Target HR (85% APMHR): 128 bpm Max HR Achieved: 114 bpm % of APMHR: 76 Recovery HR: 89 bpm BP Resting BP Supine: 118/80 mmHg Resting BP Standin/78 mmHg Max BP: 160/88 mmHg Recovery BP: 120/76 mmHg ECG Resting ECG: Sinus Rhythm Ectopy: Frequent PAC's Stress ECG: Sinus Tachycardia ST Change: Nondiagnostic low heart rate Arrhythmia: Frequent PAC's Recovery ECG: Sinus Rhythm Recovery ST Change: Nondiagnostic low heart rate Recovery Arrhythmia: Frequent PAC's Clinical Stress Symptoms: Mild SOB, mild chest heaviness at start of test Angina Score: Non-Limiting Rate Pressure Product: 42514 Stress ECG Conclusion 1. Resting electrocardiogram showed left axis, low voltage late transition. 2. Patient underwent testing using pharmacologic stress with regadenoson 3. Peak heart rate achieved was 76% of maximal predicted for age 4. The electrocardiographic portion of the test was nondiagnostic 5. Atrial premature beats were noted 6. See MPI report MPI Conclusion Myocardial perfusion is normal without ischemia or evidence of prior infarction Calculated EF is 43%. Visually it appears within the range of normal, no wall wall motion abnormalit ies
[2024-10-02] MEDS: Regadenoson 0.4 MG/5 ML SYR IVP (11:13)
== END 2024-10-02 01:11 ==
LOC: DI 00:51
PROVIDERS: PCP Family Medicine; Visit Provider Internal Medicine Cardiovascular Disease
DX: I25.119 Atherosclerotic heart disease of native coronary artery with unspecified angina pectoris; I10 Essential (primary) hypertension; E78.5 Hyperlipidemia, unspecified
CPT/HCPCS: 78452; 93016; 93018; 93017; J2785

== ENCOUNTER 2025-02-03 03:19 | Outpatient (CLI) | payer MEDICARE, SELFPAY ==
[2025-02-03 07:53] LABS: Abs Immature Grans 0.02 10^3/uL (0.0-0.06); HCT 40.9 % (40.0-50.0); HGB 13.4 g/dL (13.5-17.5); Immature Grans % 0.3 %; MCH 31.9 pg (27.0-33.0); MCHC 32.8 % (32.0-36.0); MCV 97 fL (80-95); MPV 9.9 fL (8.0-11.0); Platelet Count 260 10^3/uL (130-400); RBC 4.20 10^6/uL (4.36-5.78); RDW 13.4 % (11.8-14.1); RDW-SD 47.8 fL; WBC 7.31 10^3/uL (4.4-10.8)
[2025-02-03 08:11] LABS: ALT 30 U/L (16-63); AST 18 U/L (15-37); Albumin 3.2 g/dL (3.4-5.0); Alkaline Phosphatase 61 U/L (46-116); Anion Gap 3.5 mmol/L (3-11); BUN 22 mg/dL (7-18); Bilirubin, Total 0.5 mg/dL (0.2-1.0); CO2 28.5 mmol/L (21.0-32.0); Calcium 8.7 mg/dL (8.5-10.1); Chloride 105 mmol/L (98-107); Estimated GFR 54.07 (mL/min/1.73m2); Glucose 103 mg/dL (74-106); Potassium 3.9 mmol/L (3.5-5.1); Sodium 137 mmol/L (136-145); Total Protein 9.3 g/dL (6.4-8.2)
[2025-02-03 20:54] LABS: Total Protein 8.7 g/dL (6.3-8.2)
[2025-02-03 21:30] LABS: PSA, Diagnostic 7.8 ng/mL (<=6.5)
[2025-02-04 11:29] LABS: Albumin 42.6 % (55.8-66.1); Albumin g/dL 3.7 g/dL (3.6-5.2); Alpha 1 g/dL 0.30 g/dL (0.15-0.40); Alpha 2 g/dL 0.70 g/dL (0.50-1.00); Beta g/dL 0.60 g/dL (0.60-1.20); Gamma g/dL 3.40 g/dL (0.60-1.60); Monoclonal Spike g/dL 2.9 g/dL (None Seen)
[2025-02-04 11:47] LABS: Kappa Free Light Chain 16.89 mg/dL (0.33-1.94); Lambda Free Light Chain 1.69 mg/dL (0.57-2.63)
== END 2025-02-03 03:20 | disposition home or self-care (01) ==
LOC: LBO 03:19
PROVIDERS: Nurse Practitioner Gerontology; PCP Family Medicine; Visit Provider Internal Medicine Hematology & Oncology
DX: R97.20 Elevated prostate specific antigen [PSA] (principal); D47.2 Monoclonal gammopathy
CPT/HCPCS: 36415; 80053; 82784; 83883; 84153; 84165; 85025

== ENCOUNTER → 2025-02-05 14:07 | Outpatient (BNVA) | payer MEDICARE, SELFPAY | PROVIDERS: PCP Family Medicine; Visit Provider Nurse Practitioner Gerontology | DX: M25.552 Pain in left hip (principal); R97.20 Elevated prostate specific antigen [PSA] | CPT/HCPCS: 99214 ==

== ENCOUNTER 2025-02-18 01:09 | Outpatient (CLI) | payer MEDICARE, SELFPAY ==
--- NOTE | 2025-02-18 06:30 | DI.RAD_ITS ---
Exam(s) XR CHEST 2V PA LATERAL EXAM: XR CHEST 2V PA LATERAL CLINICAL HISTORY: pre mri,foreign body chest wall,[id number] TECHNIQUE: 2D digital imaging was performed of the chest. Two images were obtained. PA and lateral views were obtained. COMPARISON: CR CHEST 2 VIEWS PA,LAT from 08/06/2009 CR ABD FLAT UPRIGHT PA CHEST from 02/26/2010 CR CHEST 2 VIEWS PA,LAT from 05/01/2011 CR RIGHT SHOULDER COMPLETE from 07/12/[address] CHEST LUNG CANCER SCREEN from 01/25/2024 FINDINGS: There is a 2 mm radiopaque density in the soft tissues of the left anterior chest wall. This is been present dating back to 2009. MEDIASTINUM: Normal. HEART: Normal. PULMONARY VASCULATURE: Normal. LUNGS: There is unchanged scarring in the right mid lung. There are no focal consolidating infiltrates. PLEURAL SPACE: No pleural effusion or pneumothorax. BONE:Within normal limits for the patient's age. OTHER FINDINGS:There is unchanged mild elevation of the right hemidiaphragm. IMPRESSION: 1. No acute pulmonary findings. 2. 2 mm radiopaque density in the soft tissues of the left anterior chest wall. It is unchanged dating back to 2009. DATA REPOSITORY: RADIATION DOSE DELIVERED:
== END 2025-02-18 01:29 ==
LOC: DI 01:09
PROVIDERS: PCP Family Medicine; Visit Provider Nurse Practitioner Gerontology
DX: S20.359A Superficial foreign body of unspecified front wall of thorax, initial encounter (principal); X58.XXXA Exposure to other specified factors, initial encounter
CPT/HCPCS: 71046